=== PATIENT | female | born 1945 | race Caucasian/White ===

== ENCOUNTER 2020-05-19 09:28 | Outpatient (CLI) | payer MEDICARE, MEDICAID ==
[~2020-05-19] VITALS: Ht 160 cm; Wt 61.2 kg
[~2020-05-19 09:28] MED LIST: ACET-3080 PO; ASPI-611 PO; ATOR20TA66 PO; BENZ1TAB7 PO; BISA10SU11 RC; BISA5TAB10 PO; CHOL100046 PO; CLOP75TA33 PO; DOCU100C40 PO; GABA-530 PO; MAGN400O6 PO; METF-436 PO; MULT-1074 PO; OMEG-79 PO; PALI3TAB PO; PALI6TAB PO; QUET25TA34 PO; SITA50TA PO; TRAZ-251 PO
[2020-05-19 10:24] LABS: BASOPHILS % (AUTO) 0.7 % (0-1); EOSINOPHILS # (AUTO) 0.2 X10'3 (0-0.9); EOSINOPHILS % (AUTO) 2.2 % (0-6); HEMATOCRIT 39.6 % (35.0-45.0); HEMOGLOBIN 12.7 g/dl (12.0-16.0); LYMPHOCYTES # (AUTO) 1.1 X10'3 (1.1-4.8); LYMPHOCYTES % (AUTO) 16.3 % (21-51); MEAN CORPUSCULAR HEMOGLOBIN 28.6 PG (27.0-31.0); MEAN CORPUSCULAR VOLUME 89.3 FL (78-98); MEAN PLATELET VOLUME 8.7 FL (7.4-10.4); MONOCYTES # (AUTO) 0.5 X10'3 (0-0.9); NEUTROPHILS # (AUTO) 5.2 X10'3 (1.8-7.7); NEUTROPHILS % (AUTO) 73.8 % (42-75); PLATELET COUNT 298 X10'3 (140-440); RED BLOOD COUNT 4.43 X10'6 (4.20-5.60); RED CELL DISTRIBUTION WIDTH 13.8 % (11.5-14.5)
[2020-05-19 10:42] LABS: PARTIAL THROMBOPLASTIN TIME 27 SECONDS (22-32)
[2020-05-19 10:45] LABS: ALANINE AMINOTRANSFERASE 19 U/L (12-78); ALBUMIN 3.5 G/DL (3.4-5.0); ALBUMIN/GLOBULIN RATIO 1.1 (1.1-1.5); ALKALINE PHOSPHATASE 88 IU/L (46-116); ANION GAP 3 (8-16); ASPARTATE AMINO TRANSFERASE 21 U/L (10-37); BILIRUBIN,TOTAL 0.3 MG/DL (0.1-1.0); BLOOD UREA NITROGEN 16 MG/DL (7-18); BUN/CREATININE RATIO 20.8 (6.6-38.0); CALCIUM 9.1 MG/DL (8.5-10.1); CHLORIDE 106 MMOL/L (99-107); CREATININE 0.77 MG/DL (0.40-0.90); GLUCOSE 229 MG/DL (70-104); POTASSIUM 4.3 MMOL/L (3.5-5.1); SODIUM 143 MMOL/L (135-145); TOTAL PROTEIN 6.6 G/DL (6.4-8.2); eGFR 73 ML/MIN
[2020-05-19 11:15] VITALS: BP 145/80
[2020-05-19 11:25] VITALS: BP 134/66
[2020-05-19 11:35] VITALS: BP 132/71
[2020-05-19 11:40] VITALS: BP 119/68
[2020-05-19] MEDS ORDERED: albuterol 2.5 MG/3 ML nebule NEB ONE (12:30)
[2020-05-19 12:41] LABS: ABG BASE EXCESS 3.2 mmol/L (-2.0-2.0); ABG HCO3 27.8 mmol/L (22.0-26.0); ABG OXYGEN SATURATION 95.3 % (94-97); ABG PCO2 (T) 42.6 mmHg (32.0-45.0); ABG PO2 (T) 74.4 mmHg (75.0-100.0); ALLEN'S TEST POSITIVE; FCOHb 0.2 % (0.0-3.9); FMetHb 0.4 % (0.0-1.5); FO2Hb 94.7 % (94-97); TOTAL HEMOGLOBIN 12.8 G/dl (12.0-16.0)
== END 2020-05-19 23:59 | disposition home or self-care (01) ==
LOC: VAS 09:28
PROVIDERS: ATTEND Internal Medicine Cardiovascular Disease
DX: K80.20 Calculus of gallbladder without cholecystitis without obstruction (principal); K76.0 Fatty (change of) liver, not elsewhere classified; M47.817 Spondylosis without myelopathy or radiculopathy, lumbosacral region; I70.0 Atherosclerosis of aorta; I70.8 Atherosclerosis of other arteries; I35.0 Nonrheumatic aortic (valve) stenosis; I25.10 Atherosclerotic heart disease of native coronary artery without angina pectoris; R94.2 Abnormal results of pulmonary function studies; R09.02 Hypoxemia
CPT/HCPCS: 36415; 36600; 71046; 71275; 74174; 80053; 82803; 85018; 85025; 85610; 85730; 93005; 93880; 94010; 94727

== ENCOUNTER 2021-10-01 09:59 | Emergency (ER) | payer MEDICARE, MEDICAID ==
[~2021-10-01] VITALS: Ht 172.1 cm; Wt 67.3 kg
[~2021-10-01 09:59] MED LIST changes: -QUET25TA34 PO; +QUET25TA36 PO
[2021-10-01 11:43] LABS: ALANINE AMINOTRANSFERASE 29 U/L (12-78); ALBUMIN 2.7 G/DL (3.4-5.0); ALBUMIN/GLOBULIN RATIO 0.8 (1.1-1.5); ALKALINE PHOSPHATASE 70 IU/L (46-116); ANION GAP 6 (8-16); ASPARTATE AMINO TRANSFERASE 48 U/L (10-37); BILIRUBIN,TOTAL 0.4 MG/DL (0.1-1.0); BLOOD UREA NITROGEN 11 MG/DL (7-18); BUN/CREATININE RATIO 13.8 (6.6-38.0); CALCIUM 8.4 MG/DL (8.5-10.1); CHLORIDE 102 MMOL/L (99-107); GLUCOSE 275 MG/DL (70-104); POTASSIUM 4.5 MMOL/L (3.5-5.1); SODIUM 140 MMOL/L (135-145); TOTAL CARBON DIOXIDE 32.4 MMOL/L (24-32); TOTAL PROTEIN 6.3 G/DL (6.4-8.2); eGFR 69 ML/MIN
[2021-10-01 11:48] LABS: BASOPHILS % (AUTO) 0.2 % (0-1); EOSINOPHILS # (AUTO) 0.1 X10'3 (0-0.9); EOSINOPHILS % (AUTO) 0.7 % (0-6); HEMATOCRIT 36.2 % (35.0-45.0); HEMOGLOBIN 11.6 g/dl (12.0-16.0); LYMPHOCYTES % (AUTO) 9.7 % (21-51); MEAN CORPUSCULAR HEMOGLOBIN 27.8 PG (27.0-31.0); MEAN CORPUSCULAR HGB CONC 32.1 g/dL (33.0-36.5); MEAN CORPUSCULAR VOLUME 86.6 FL (78-98); MEAN PLATELET VOLUME 8.3 FL (7.4-10.4); MONOCYTES # (AUTO) 1.1 X10'3 (0-0.9); MONOCYTES % (AUTO) 10.7 % (2-12); NEUTROPHILS % (AUTO) 78.7 % (42-75); PLATELET COUNT 270 X10'3 (140-440); RED BLOOD COUNT 4.18 X10'6 (4.20-5.60); RED CELL DISTRIBUTION WIDTH 13.6 % (11.5-14.5); WHITE BLOOD COUNT 10.1 X10'3 (4.5-11.0)
[2021-10-01] MEDS ORDERED: normal saline 1000ML IV soln IVB ONE (12:05)
[2021-10-01 13:03] LABS: CLARITY,URINE CLEAR (Clear); COLOR,URINE YELLOW (Yellow); GLUCOSE, URINE >=1000 mg/dl (Neg); KETONES,URINE NEGATIVE (Neg); LEUKOCYTE ESTERASE ,URINE NEGATIVE (Neg); NITRITES, URINE NEGATIVE (Neg); OCCULT BLOOD,URINE TRACE-INTACT (Neg); PH,URINE 5.5 (4.8-8.0); PROTEIN,URINE NEGATIVE (Neg); UROBILINOGEN,URINE 0.2 E.U/dL (0.2-1.0)
[2021-10-01 13:16] LABS: UA COLLECTION TYPE CLN CATCH MIDSTREAM
[2021-10-01 13:20] LABS: BACTERIA,URINE FEW /HPF (Neg); MUCUS STRANDS NONE SEEN /LPF (Neg); RBC,URINE 0-2 /HPF (0-2); SQUAMOUS EPITHELIAL CELL,UR FEW /LPF (FEW); WBC,URINE 0-4 /HPF (0-4)
--- NOTE | 2021-10-01 13:45 | NUR ---
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
[2021-10-01 15:57] VITALS: BP 135/75
== END 2021-10-01 15:59 | disposition home or self-care (01) ==
LOC: ER 10:00
DX: Z02.89 Encounter for other administrative examinations (principal); R41.82 Altered mental status, unspecified; E11.9 Type 2 diabetes mellitus without complications; F20.9 Schizophrenia, unspecified; Z79.82 Long term (current) use of aspirin; Z79.899 Other long term (current) drug therapy; W19.XXXA Unspecified fall, initial encounter; Y93.89 Activity, other specified; Y92.89 Other specified places as the place of occurrence of the external cause; Y99.8 Other external cause status
CPT/HCPCS: 70450; 71046; 80053; 81001; 83880; 84484; 93005; 96360; 99285; J7030

== ENCOUNTER 2022-09-07 06:15 | Inpatient (IN) | payer MEDICARE, MEDICAID ==
[2022-08-31 15:26] LABS: BASOPHILS % (AUTO) 0.5 % (0-1); EOSINOPHILS # (AUTO) 0.2 X10'3 (0-0.9); EOSINOPHILS % (AUTO) 2.2 % (0-6); LYMPHOCYTES # (AUTO) 1.3 X10'3 (1.1-4.8); LYMPHOCYTES % (AUTO) 18.2 % (21-51); MEAN CORPUSCULAR HEMOGLOBIN 29.2 PG (27.0-31.0); MEAN CORPUSCULAR HGB CONC 33.4 g/dL (33.0-36.5); MEAN CORPUSCULAR VOLUME 87.5 FL (78-98); MEAN PLATELET VOLUME 8.7 FL (7.4-10.4); MONOCYTES # (AUTO) 0.7 X10'3 (0-0.9); NEUTROPHILS # (AUTO) 5.1 X10'3 (1.8-7.7); NEUTROPHILS % (AUTO) 70.1 % (42-75); PRE OP HEMATOCRIT 41.8 % (35.0-45.0); PRE OP PLATELET COUNT 213 X10'3 (140-440); RED BLOOD COUNT 4.78 X10'6 (4.20-5.60); RED CELL DISTRIBUTION WIDTH 13.6 % (11.5-14.5)
[2022-08-31 15:39] LABS: PRE OP PROTIME 11.2 SECONDS (9.0-12.0)
[2022-08-31 15:47] LABS: HEMOGLOBIN A1C 6.5 % (4.5-6.2)
[2022-08-31 15:56] LABS: ALBUMIN 3.6 G/DL (3.4-5.0); ALBUMIN/GLOBULIN RATIO 1.3 (1.1-1.5); ALKALINE PHOSPHATASE 95 IU/L (46-116); BLOOD UREA NITROGEN 15 MG/DL (7-18); BUN/CREATININE RATIO 20.5 (10.0-20.0); CALCIUM 9.1 MG/DL (8.5-10.1); CHLORIDE 104 MMOL/L (99-107); CREATININE 0.73 MG/DL (0.40-0.90); PRE OP ALT 19 U/L (30-65); PRE OP ANION GAP 0 (8-16); PRE OP AST 21 U/L (10-37); PRE OP BILIRUB, TOTAL 0.2 MG/DL (0.0-1.0); PRE OP GLUCOSE 161 MG/DL (70-104); PRE OP POTASSIUM 4.4 MMOL/L (3.4-5.1); PRE OP SODIUM 138 MMOL/L (135-145); TOTAL PROTEIN 6.4 G/DL (6.4-8.2); eGFR 77 ML/MIN
[~2022-09-07] VITALS: Ht 165.1 cm; Wt 66.2 kg
[2022-09-07] VITALS (9 sets, daily range): BP systolic 102–143; BP diastolic 55–84
[~2022-09-07 06:15] MED LIST changes: -ATOR20TA66 PO; +ATOR40TA72 PO; -BENZ1TAB7 PO; +BENZ1TAB78 PO; -BISA10SU11 RC; -BISA5TAB10 PO; +LANTUS SQ; +LORA10TA7 PO; -MAGN400O6 PO; -METF-436 PO; +QUET25TA PO; -QUET25TA36 PO; -SITA50TA PO; -TRAZ-251 PO; +aspirin 325mg tablet PO ONE; +cefazolin 2gm/D5W 100mL 100 ML IV ONE; +famotidine 20mg tablet PO ONE; +nitroPRUSSIDE (NIPRIDE) (200MCG/ML) 100ML Drip IV SCH; +ondansetron/PF 4mg/2ml inj IV PRN; +phenylephrine inj 50 MG in normal saline 250ml IV solN IV SCH; +ringers solution, lacted 1,000 ML IV SCH; +vancomycin/NS 1 GM in NS 250 ML IV ONE
[2022-09-07] MEDS ORDERED: protamine sulfate 10mg/ml inj. ONE (07:00)
[2022-09-07] MEDS ORDERED: ondansetron/PF 4mg/2ml inj IV PRN ×2 (11:05→15:55)
[2022-09-07] MEDS ORDERED: morphine 4 MG/ML inj SYRINge IV PRN (11:05)
[2022-09-07] MEDS ORDERED: morphine 2 MG/ML inj. syringe IV PRN (11:05)
[2022-09-07] MEDS ORDERED: ringers solution, lacted 1,000 ML IV SCH (11:05)
[2022-09-07] MEDS ORDERED: hydrALAZINE 20mg/ml inj. IV PRN ×2 (11:05→15:55)
--- NOTE | 2022-09-07 11:36 | NUR ---
NURSING ASKED DR STRINGER ABOUT PRE-OP DOSE OF ASPIRIN. PT TOOK 81MG TAB THIS AM AT FACILITY PRIOR TO ARRIVAL [facility]. DR STRINGER STATED IT WAS OKAY FOR PT TO RECEIVE 325MG DOSE HERE BEFORE PROCEDURE. WILL GIVE ORDERED AND CONTINUE TO ASSESS.
[2022-09-07] MEDS ORDERED: LIDOcaine 1% (10mg/ml) 2ml vial ONE (12:06)
[2022-09-07] MEDS ORDERED: heparin 1,000 UNITS/NS 500ml 1,500 ML ONE (13:24)
[2022-09-07] MEDS ORDERED: sevoflurane 250ml liquid IH ONE (13:25)
[2022-09-07] MEDS ORDERED: iohexol 350MG/ML 100ml bottle IV ONE ×2 (13:28→13:29)
[2022-09-07] MEDS ORDERED: acetaminophen 325mg tablet PO PRN ×2 (13:40→15:55)
[2022-09-07] MEDS ORDERED: morphine 10mg/ml inj. ONE (13:48)
[2022-09-07] MEDS ORDERED: midazolam 1 mg/ML 2ml injection ONE (13:48)
[2022-09-07] MEDS ORDERED: heparin 1,000unit/ml 10ml vial 10 ML ONE (13:50)
[2022-09-07] MEDS ORDERED: LIDOcaine 2% (20mg/ml) 5ml vial ONE (13:50)
[2022-09-07] MEDS ORDERED: propofol inj 20 ML IV ONE (13:50)
[2022-09-07] MEDS ORDERED: ePHEDrine 50MG/ML INJ. ONE (13:59)
[2022-09-07] MEDS ORDERED: protamine sulf. 10mg/ml inj. IV ONE (15:30)
[2022-09-07] MEDS ORDERED: nitroGLYCERIN-Tridil 50MG/D5W 250 ML IV ONE (15:33)
[2022-09-07] MEDS ORDERED: insulin Lispro (HumaLOG) vial - multi-dose SQ SCH (15:55)
[2022-09-07] MEDS ORDERED: ALPRAZolam 0.25mg tablet PO PRN (15:55)
[2022-09-07] MEDS ORDERED: glucagon, human recombinant 1mg kit SUBCUT PRN (15:55)
[2022-09-07] MEDS ORDERED: potassium Cl 20 mEq SR tablet PO PRN (15:55)
[2022-09-07] MEDS ORDERED: docusate sod 100mg capsule PO PRN (15:55)
[2022-09-07] MEDS ORDERED: diphenhydrAMINE 25mg capsule PO PRN (15:55)
[2022-09-07] MEDS ORDERED: potassium Cl 40MEQ/1/2NS 520ml 520 ML IV PRN (15:55)
[2022-09-07] MEDS ORDERED: magnesium 4gm in 100ml NS 100 ML IV PRN (15:55)
[2022-09-07] MEDS ORDERED: potassium Cl 20mEq/100mL bag 100 ML IV PRN (15:55)
[2022-09-07] MEDS ORDERED: labetalol 20mg/4ml (5mg/ml) syringe IV PRN (15:55)
[2022-09-07] MEDS ORDERED: HYDROcodone/acetaminophen 5mg/325mg tablet PO PRN (15:55)
[2022-09-07] MEDS ORDERED: magnesium 2GM in 50ml NS 50 ML IV PRN (15:55)
[2022-09-07] MEDS ORDERED: DEXTROSE 15 GM of carb/4 tabs (each vial/BOTTLE has 4 tablets) PO PRN ×2 (15:55)
[2022-09-07] MEDS ORDERED: proCHLORperazine 10 MG/2 ml inj IV PRN (15:55)
[2022-09-07] MEDS ORDERED: MESSAGE TO PHARMACY PO ONE (15:55)
[2022-09-07] MEDS ORDERED: potassium Cl 40MEQ/270ML bag 250 ML IV PRN (15:55)
[2022-09-07] MEDS ORDERED: potassium CL 10mEq/100ml bag 100 ML IV PRN (15:55)
[2022-09-07] MEDS ORDERED: insulin regular, human U-100 3ml vial - multi-dose SQ SCH (15:55)
[2022-09-07] MEDS ORDERED: dextrose 50%-water 50ml dispensing syringe IV PRN ×2 (15:55)
[2022-09-07] MEDS ORDERED: pantoprazole 40mg Tablet.DR PO PRN (15:55)
--- NOTE | 2022-09-07 15:55 | NUR ---
Received from OR via BED, accompanied by Anesthesiologist and report given by Anesthesiologist AND NURSE. PT ARRIVED DROWSY BUT ABLE TO RESPOND TO VERBAL STIMULI ON 10 L OF 02 VIA MASK. PT HAS 20 G IV TO RIGHT HAND AND ART LINE TO LEFT WRIST. PT HAS DRESSING TO RIGHT AND LEFT GROIN THAT IS C/D/I, NO SWELLING OR BLEEDING NOTED. ARTERIAL PRESSURE DEVICE INTACT TO RIGHT WRIST. WILL DEFLATE ORDERS STATES. NEURO ASSESSMENT COMPLETED. 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 BILATERAL PEDAL PULSES STRONG. VSS. WILL CONTINUE TO ASSESS. BILAT GROIN SITE DRESSING 2X2 WITH TEGADERM CDI NO EDEMA OR HEMATOMA OBSERVED. PEDAL AND RADIAL PULSES INTACT.
[2022-09-07] MEDS: ceFAZolin 1GM/D5W- ADD-VANTAGE 50 ML IV SCH (16:00)
[2022-09-07] MEDS: sod chloride 0.9% 10ml flush syringe IV SCH (16:00)
--- NOTE | 2022-09-07 16:55 | NUR ---
PT A&OX4, V/S WNL, 4L OF 02 VIA NC. PT HAS 20 G IV TO RIGHT HAND AND ART LINE TO LEFT WRIST WAS D/C WITHOUT COMPLICATIONS . PT HAS DRESSING TO RIGHT AND LEFT GROIN THAT IS C/D/I, NO SWELLING OR BLEEDING NOTED EXCEPT FOR VERY SMALL BLOOD STAIN TO RIGHT GROIN 2X2 1/4 OF THE 2X[address] ARE[address] BROWN AWARE.. ARTERIAL PRESSURE DEVICE INTACT TO RIGHT WRIST AND FIRST 2ML REMOVED AT BEDSIDE IN PCU WITH ORGANIC LAB WORKER AT BEDSIDE. NEURO ASSESSMENT COMPLETED AND UNCHANGED.. 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 BILATERAL PEDAL PULSES STRONG. VSS. WILL CONTINUE TO ASSESS. PEDAL AND RADIAL PULSES INTACT. PATIENT NOW IN PCU 3023C WITH ALL BELONGINGS AND HOOKED UP TO MONITORS IN ROOM AND REPORT GIVEN TO ORGANIC LAB WORKER WHO HAS TAKEN OVER PATIENT CARE.
--- NOTE | 2022-09-07 18:34 | NUR ---
Problems reprioritized. Patient report given, questions answered & plan of care reviewed with Alison MAYO, patient stable at transfer of care.
--- NOTE | 2022-09-07 18:57 | NUR ---
Patient in room PCU 3023C. I have received report from Opal MAYO, and had the opportunity to ask questions and assume patient care.
[2022-09-07] MEDS ORDERED: vancomycin/NS 1 GM ADD-VANTAGE 250 ML IV SCH (20:00)
[2022-09-07] MEDS: docusate sod 100mg capsule PO SCH (20:52)
[2022-09-07] MEDS: gabapentin 100mg capsule PO SCH (20:53)
[2022-09-07] MEDS: benztropine 1mg tablet PO SCH (20:53)
[2022-09-07] MEDS ORDERED: QUEtiapine 25mg tablet PO SCH (21:00)
[2022-09-07] MEDS ORDERED: PALIPERIDONE 3 MG TAB.ER.24 PO SCH (21:00)
[2022-09-07] MEDS ORDERED: atorvastatin 20mg tablet PO SCH (21:00)
[2022-09-07] MEDS ORDERED: insulin glargine (Lantus) pen - multi-dose SQ SCH (21:00)
[2022-09-07] MEDS ORDERED: albuterol 2.5 MG/3 ML nebule NEB ONE (21:10)
--- NOTE | 2022-09-07 22:09 | NUR ---
Lantus not given d/t Pt not meeting protocol yet. 2100 [facility]SBG is 109.
[2022-09-08] MEDS: normal saline 1000ml 1,000 ML IV SCH ×2 (03:30→11:55)
--- NOTE | 2022-09-08 06:43 | NUR ---
Problems reprioritized. Patient report given, questions answered & plan of care reviewed with Opal MAYO. Pt mara at shift change.
[2022-09-08 07:21] VITALS: BP 116/70
[2022-09-08] MEDS ORDERED: clopidogrel 75mg tablet PO SCH (08:00)
[2022-09-08] MEDS: sod chloride 0.9% 10ml flush syringe IV SCH ×2 (08:00)
[2022-09-08] MEDS ORDERED: multivitamins, therapeutics tablet PO SCH (08:00)
[2022-09-08] MEDS ORDERED: aspirin 81mg, enteric-coated 1 TAB TABLET.DR PO SCH (08:00)
[2022-09-08] MEDS ORDERED: loratadine 10mg tablet PO SCH (08:00)
[2022-09-08] MEDS: ceFAZolin 1GM/D5W- ADD-VANTAGE 50 ML IV SCH ×2 (08:00)
[2022-09-08] MEDS ORDERED: PALIPERIDONE 3 MG TAB.ER.24 PO SCH (08:00)
[2022-09-08] MEDS ORDERED: OMEGA-3/DHA/EPA/FISH OIL 1 EACH CAPSULE.DR PO SCH (08:00)
[2022-09-08] MEDS ORDERED: cholecalciferol (vitamin D3) 1,000 unit (25mcg) tablet PO SCH (08:00)
[2022-09-08 08:17] LABS: BASOPHILS % (AUTO) 0.6 % (0-1); EOSINOPHILS # (AUTO) 0.2 X10'3 (0-0.9); EOSINOPHILS % (AUTO) 2.6 % (0-6); HEMATOCRIT 36.2 % (35.0-45.0); HEMOGLOBIN 11.8 g/dl (12.0-16.0); LYMPHOCYTES # (AUTO) 0.9 X10'3 (1.1-4.8); LYMPHOCYTES % (AUTO) 12.4 % (21-51); MEAN CORPUSCULAR HEMOGLOBIN 28.8 PG (27.0-31.0); MEAN CORPUSCULAR HGB CONC 32.7 g/dL (33.0-36.5); MEAN PLATELET VOLUME 8.7 FL (7.4-10.4); MONOCYTES # (AUTO) 0.9 X10'3 (0-0.9); MONOCYTES % (AUTO) 12.2 % (2-12); NEUTROPHILS # (AUTO) 5.2 X10'3 (1.8-7.7); NEUTROPHILS % (AUTO) 72.2 % (42-75); PLATELET COUNT 162 X10'3 (140-440); RED BLOOD COUNT 4.11 X10'6 (4.20-5.60); RED CELL DISTRIBUTION WIDTH 13.6 % (11.5-14.5); WHITE BLOOD COUNT 7.2 X10'3 (4.5-11.0)
[2022-09-08] MEDS ORDERED: aspirin 81mg tab.chew PO SCH (08:30)
[2022-09-08] MEDS: benztropine 1mg tablet PO SCH (09:03)
[2022-09-08 09:05] LABS: ALANINE AMINOTRANSFERASE 10 U/L (12-78); ALBUMIN 2.8 G/DL (3.4-5.0); ALBUMIN/GLOBULIN RATIO 1.1 (1.1-1.5); ALKALINE PHOSPHATASE 64 IU/L (46-116); ANION GAP 6 (8-16); ASPARTATE AMINO TRANSFERASE 17 U/L (10-37); BILIRUBIN,TOTAL 0.5 MG/DL (0.1-1.0); BLOOD UREA NITROGEN 12 MG/DL (7-18); BUN/CREATININE RATIO 16.4 (10.0-20.0); CALCIUM 8.2 MG/DL (8.5-10.1); CHLORIDE 105 MMOL/L (99-107); CREATININE 0.73 MG/DL (0.40-0.90); GLUCOSE 145 MG/DL (70-104); MAGNESIUM 1.9 MG/DL (1.5-2.4); POTASSIUM 4.1 MMOL/L (3.5-5.1); SODIUM 140 MMOL/L (135-145); TOTAL CARBON DIOXIDE 28.8 MMOL/L (24-32); TOTAL PROTEIN 5.3 G/DL (6.4-8.2); eGFR 77 ML/MIN
[2022-09-08] MEDS: gabapentin 100mg capsule PO SCH (09:06)
[2022-09-08] MEDS: docusate sod 100mg capsule PO SCH (09:06)
--- NOTE | 2022-09-08 14:52 | NUR ---
Stable for discharge per MD, PIV and tele monitor removed with no issues. Pt dressed in own clothes from admission and picked up by [employer] employee, belongings sent with patient. Called Raman and gave report to nurse.
== END 2022-09-08 13:55 | DRG 320 ==
LOC: PAS IN 08:42 → PCU 3S 17:07
PROVIDERS: ADMIT Internal Medicine Cardiovascular Disease; ATTEND Internal Medicine Cardiovascular Disease
PROC: B41D1ZZ Fluoroscopy of Aorta and Bilateral Lower Extremity Arteries using Low Osmolar Contrast (ICD-10-PCS; 2022-09-07)
PROC: 027F3ZZ Dilation of Aortic Valve, Percutaneous Approach (ICD-10-PCS; principal; 2022-09-07 13:25)
DX: I35.2 Nonrheumatic aortic (valve) stenosis with insufficiency (principal); I24.0 Acute coronary thrombosis not resulting in myocardial infarction; E11.9 Type 2 diabetes mellitus without complications; E78.5 Hyperlipidemia, unspecified; F31.9 Bipolar disorder, unspecified; I10 Essential (primary) hypertension; F25.9 Schizoaffective disorder, unspecified; Z79.4 Long term (current) use of insulin; Z79.899 Other long term (current) drug therapy; Z79.82 Long term (current) use of aspirin
CPT/HCPCS: 36415; 71045; 71046; 76937; 80053; 82948; 83036; 83735; 83880; 85025; 85347; 85610; 85730; 86885; 86900; 86901; 86920; 87081; 92986; 93005; 93308; 93454; A4615; A4618; A6258; A6449; C1725; C1751; C1760; C1769; C1892; C1894; G0378; J0690; J1644; J1815; J2250; J2274; J2370; J2704; J2720; J3370; J3490; J7030; J7040; J7050; J7120; Q9967

== ENCOUNTER 2022-09-20 20:47 | Emergency (ER) | payer MEDICARE, MEDICAID ==
[~2022-09-20] VITALS: Ht 170.2 cm; Wt 65.9 kg
[~2022-09-20 20:47] MED LIST changes: -aspirin 325mg tablet PO ONE; -cefazolin 2gm/D5W 100mL 100 ML IV ONE; -famotidine 20mg tablet PO ONE; -nitroPRUSSIDE (NIPRIDE) (200MCG/ML) 100ML Drip IV SCH; -ondansetron/PF 4mg/2ml inj IV PRN; -phenylephrine inj 50 MG in normal saline 250ml IV solN IV SCH; -ringers solution, lacted 1,000 ML IV SCH; -vancomycin/NS 1 GM in NS 250 ML IV ONE
[2022-09-20 23:11] LABS: BASOPHILS # (AUTO) 0.1 X10'3 (0-0.2); BASOPHILS % (AUTO) 0.8 % (0-1); EOSINOPHILS # (AUTO) 0.3 X10'3 (0-0.9); EOSINOPHILS % (AUTO) 2.7 % (0-6); HEMOGLOBIN 11.2 g/dl (12.0-16.0); LYMPHOCYTES # (AUTO) 1.5 X10'3 (1.1-4.8); LYMPHOCYTES % (AUTO) 15.8 % (21-51); MEAN CORPUSCULAR HEMOGLOBIN 28.5 PG (27.0-31.0); MEAN CORPUSCULAR HGB CONC 33.1 g/dL (33.0-36.5); MEAN CORPUSCULAR VOLUME 86.3 FL (78-98); MONOCYTES % (AUTO) 10.8 % (2-12); NEUTROPHILS # (AUTO) 6.5 X10'3 (1.8-7.7); NEUTROPHILS % (AUTO) 69.9 % (42-75); PLATELET COUNT 311 X10'3 (140-440); RED BLOOD COUNT 3.94 X10'6 (4.20-5.60); RED CELL DISTRIBUTION WIDTH 13.5 % (11.5-14.5); WHITE BLOOD COUNT 9.4 X10'3 (4.5-11.0)
[2022-09-20 23:18] VITALS: BP 142/78
[2022-09-20 23:20] LABS: APTT 29 SECONDS (22-32)
[2022-09-20 23:23] LABS: ALANINE AMINOTRANSFERASE 14 U/L (12-78); ALBUMIN 3.1 G/DL (3.4-5.0); ALBUMIN/GLOBULIN RATIO 1.1 (1.1-1.5); ALKALINE PHOSPHATASE 90 IU/L (46-116); ANION GAP 1 (8-16); ASPARTATE AMINO TRANSFERASE 15 U/L (10-37); BILIRUBIN,TOTAL 0.3 MG/DL (0.1-1.0); BLOOD UREA NITROGEN 18 MG/DL (7-18); BUN/CREATININE RATIO 23.4 (10.0-20.0); CALCIUM 8.6 MG/DL (8.5-10.1); CHLORIDE 104 MMOL/L (99-107); CREATININE 0.77 MG/DL (0.40-0.90); GLUCOSE 160 MG/DL (70-104); POTASSIUM 4.1 MMOL/L (3.5-5.1); SODIUM 139 MMOL/L (135-145); TOTAL CARBON DIOXIDE 33.7 MMOL/L (24-32); TOTAL PROTEIN 5.9 G/DL (6.4-8.2); eGFR 72 ML/MIN
[2022-09-20] MEDS ORDERED: APIX5TAB3 PO (23:37)
[2022-09-20] MEDS ORDERED: apixaban 5mg tablet PO STA (23:39)
== END 2022-09-21 00:12 | disposition home or self-care (01) ==
LOC: ER 20:47
DX: I82.492 Acute embolism and thrombosis of other specified deep vein of left lower extremity (principal); Z79.899 Other long term (current) drug therapy; Z79.82 Long term (current) use of aspirin
CPT/HCPCS: 36415; 80053; 85025; 85610; 85730; 93971; 99284

== ENCOUNTER 2023-08-08 11:24 | Emergency (ER) | payer MEDICARE, MEDICAID ==
[~2023-08-08] VITALS: Ht 170.2 cm; Wt 67.0 kg
[~2023-08-08 11:24] MED LIST changes: +APIX5TAB3 PO
[2023-08-08 12:07] LABS: BASOPHILS % (AUTO) 0.5 % (0-1); EOSINOPHILS # (AUTO) 0.1 X10'3 (0-0.9); EOSINOPHILS % (AUTO) 1.7 % (0-6); HEMATOCRIT 39.5 % (35.0-45.0); LYMPHOCYTES # (AUTO) 1.1 X10'3 (1.1-4.8); MEAN CORPUSCULAR HEMOGLOBIN 28.9 PG (27.0-31.0); MEAN CORPUSCULAR HGB CONC 32.8 g/dL (33.0-36.5); MEAN PLATELET VOLUME 8.8 FL (7.4-10.4); MONOCYTES # (AUTO) 0.7 X10'3 (0-0.9); MONOCYTES % (AUTO) 9.3 % (2-12); NEUTROPHILS # (AUTO) 5.5 X10'3 (1.8-7.7); NEUTROPHILS % (AUTO) 73.5 % (42-75); PLATELET COUNT 198 X10'3 (140-440); RED BLOOD COUNT 4.49 X10'6 (4.20-5.60); RED CELL DISTRIBUTION WIDTH 13.7 % (11.5-14.5); WHITE BLOOD COUNT 7.5 X10'3 (4.5-11.0)
[2023-08-08 12:27] LABS: ALBUMIN 3.2 G/DL (3.4-5.0); ANION GAP 5 (8-16); BLOOD UREA NITROGEN 14 MG/DL (7-18); BUN/CREATININE RATIO 19.4 (10.0-20.0); CALCIUM 8.6 MG/DL (8.5-10.1); CHLORIDE 101 MMOL/L (99-107); CREATININE 0.72 MG/DL (0.40-0.90); GLUCOSE 259 MG/DL (70-104); POTASSIUM 4.5 MMOL/L (3.5-5.1); PRO BRAIN NATRIURETIC PEPTIDE 2343 PG/ML (0-450); SODIUM 139 MMOL/L (135-145); eCRCL 61 ML/MIN; eGFR 78 ML/MIN
[2023-08-08 13:31] VITALS: TEMP 99
[2023-08-08 13:44] LABS: BILIRUBIN,URINE NEGATIVE (Neg); CLARITY,URINE CLOUDY (Clear); COLOR,URINE YELLOW (Yellow); GLUCOSE, URINE 500 mg/dl (Neg); KETONES,URINE NEGATIVE (Neg); LEUKOCYTE ESTERASE ,URINE NEGATIVE (Neg); NITRITES, URINE POSITIVE (Neg); OCCULT BLOOD,URINE NEGATIVE (Neg); PROTEIN,URINE NEGATIVE (Neg); UROBILINOGEN,URINE 0.2 E.U/dL (0.2-1.0)
[2023-08-08 13:45] LABS: UA COLLECTION TYPE STRAIGHT CATH
[2023-08-08 14:00] LABS: HYALINE CASTS 0-3 /LPF (NEGATIVE); MUCUS STRANDS FEW /LPF (Neg); WBC CLUMPS,URINE MANY /HPF (NEGATIVE)
[2023-08-08 14:01] LABS: BACTERIA,URINE 3+ /HPF (Neg); SQUAMOUS EPITHELIAL CELL,UR MODERATE /LPF (FEW); WBC,URINE 20-30 /HPF (0-4)
[2023-08-08] MEDS ORDERED: CEPH250T PO (14:14)
[2023-08-08 16:51] VITALS: BP 157/90; PULSE 89; RESP 18; O2SAT 91
== END 2023-08-08 16:55 ==
LOC: ER 11:24
DX: I10 Essential (primary) hypertension (principal); R40.4 Transient alteration of awareness; N39.0 Urinary tract infection, site not specified; Z86.73 Personal history of transient ischemic attack (TIA), and cerebral infarction without residual deficits; F03.90 Unspecified dementia, unspecified severity, without behavioral disturbance, psychotic disturbance, mood disturbance, and anxiety
CPT/HCPCS: 36415; 71045; 80048; 81001; 83880; 84484; 85025; 87077; 87088; 87186; 93005; 99285; A4353